=== PATIENT | male | born 1970 | race Caucasian/White ===

== ENCOUNTER 2022-02-19 18:07 | Emergency (ER) | payer BC ==
[2022-02-19] MEDS ORDERED: Bacitracin 1 PK ONE (19:40)
== END 2022-02-19 20:00 | disposition home or self-care (01) ==
LOC: CSHERS 18:07
DX: S42.002A Fracture of unspecified part of left clavicle, initial encounter for closed fracture (principal); W17.89XA Other fall from one level to another, initial encounter
CPT/HCPCS: 71045